=== PATIENT | male | born 1955 | race Caucasian/White ===

== ENCOUNTER 2016-11-05 08:24 | Emergency (ER) | payer OTHER ==
[~2016-11-05] VITALS: Ht 182.9 cm; Wt 99.8 kg
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
[2016-11-05 09:48] LABS: ABO BLOOD TYPE A; RH BLOOD TYPE POSITIVE
[2016-11-05 09:49] LABS: ANTIHUMAN GLOB CROSSMATCH COMPAT
[2016-11-05 09:50] LABS: ANTIHUMAN GLOB CROSSMATCH COMPAT
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
[2016-11-10 08:25] VITALS: BP 0/0
== END 2016-11-05 10:38 | disposition expired ==
LOC: ER 08:24 → UTC 08:34 → ER 10:38
PROVIDERS: Emergency Medicine
PROC: 0W9B30Z Drainage of Left Pleural Cavity with Drainage Device, Percutaneous Approach (ICD-10-PCS; principal; 2016-11-05)
DX: S22.43XA Multiple fractures of ribs, bilateral, initial encounter for closed fracture (principal); I46.8 Cardiac arrest due to other underlying condition; T79.4XXA Traumatic shock, initial encounter; T79.7XXA Traumatic subcutaneous emphysema, initial encounter; S42.402A Unspecified fracture of lower end of left humerus, initial encounter for closed fracture; S72.301A Unspecified fracture of shaft of right femur, initial encounter for closed fracture; S52.91XB Unspecified fracture of right forearm, initial encounter for open fracture type I or II; R40.2212 Coma scale, best verbal response, none, at arrival to emergency department; R40.2112 Coma scale, eyes open, never, at arrival to emergency department; R40.2312 Coma scale, best motor response, none, at arrival to emergency department; V43.92XA Unspecified car occupant injured in collision with other type car in traffic accident, initial encounter; Y92.410 Unspecified street and highway as the place of occurrence of the external cause
CPT/HCPCS: P9016